=== PATIENT | female | born 1945 | race Hispanic/Latino ===

== ENCOUNTER 2016-12-02 09:52 | Emergency (ER) | payer MEDICARE, MEDICAID ==
[~2016-12-02] VITALS: Ht 157.5 cm; Wt 68.2 kg
[~2016-12-02 09:52] MED LIST: ALBU8.5H2 INHALATION; ASPI-973 PO; CITA20TA11 PO; GABA-502 PO; GEMF600T3 PO; GLIP10TA10 PO; LOSA50TA37 PO; METF850T2 PO; OMEP20TA86 PO; RANI300T4 PO
[2016-12-02 09:58] VITALS: BP 141/80; PULSE 103; RESP 22; O2SAT 98
--- NOTE | 2016-12-02 10:11 | ED.REPORT ---
HPI-General Illness Date of Service Dec 02, 2016 ED Provider: The patient is a 71 year old female with history of diabetes mellitus, anxiety, asthma, GERD, and hypertension, who was brought to the emergency department by EMS for chest pain. The patient states her family was coming up with a safety plan for her grandchildren if their parents were taken away. She felt threatened by her kbpzhuxy-kz-thc and began to work herself up. The patient states, "my jtlmlaop-ta-csj felt helpless and was putting it all on me." During this discussion she experienced chest pain, shortness of breath, and left arm tingling. She states, "I felt dizzy and as my [id number] got closer and closer, I fell. My grandson helped me up and got me water." She did not lose consciousness. These symptoms lasted for about 10 minutes. She has not had similar symptoms in the past. At this time the chest pain has improved and she only complains of a headache. She has had headaches for years and her symptoms are similar to previous episodes. Nursing Notes Stated Complaint: ANXIETY ATTACK Chief Complaint: General Complaint Nursing Notes Reviewed: Yes Allergies: Coded Allergies: lisinopril (Verified Adverse Reaction, Mild, COUGH, 07/28/16) Scheduled Albuterol HFA (Proair HFA) 8.5 Gm Hfa.aer.ad 2 PUFFS INHALATION Q4H Aspirin (Aspirin) 81 Mg Tablet 81 MG PO DAILY Citalopram (Citalopram) 20 Mg Tablet 20 MG PO DAILY Gabapentin (Gabapentin) 300 Mg Capsule 300 MG PO BID Gemfibrozil (Gemfibrozil) 600 Mg Tablet 600 MG PO BID Glipizide (Glipizide) 10 Mg Tablet 5 MG PO TIDAC Losartan Potassium (Losartan Potassium) 50 Mg Tablet 25 MG PO TID Metformin (Metformin) 850 Mg Tablet 850 MG PO TIDWM Omeprazole (Omeprazole) 20 Mg Tablet.dr 40 MG PO TID Ranitidine (Ranitidine) 300 Mg Tablet 300 MG PO DAILY General Time Seen by MD: 10:10 Chief Complaint Chest pain Hx Obtained From: Patient, [facility], EMS Arrived By: Ambulance Sudden in Onset?: Yes Onset Occurred: 1 - 4 hours ago Symptom Duration: Since onset Location: : Chest Quality: Painful Severity: Current: Mild Severity: Maximum: Moderate Recent Healthcare: No recent doctor visit, No recent hospitalization Similar Sx Previous: No Past Medical History Past Medical History DM, not insulin dependent. Anxiety Reports: Asthma, GERD, Hypertension Past Surgical History Right knee arthroscopy Left shoulder surgery Left eye surgery Reports: Cholecystectomy, Tonsillectomy Family History M: stroke, DM F: stroke, DM Reports: Diabetes mellitus, Stroke Smoking History Never Smoker Social History Alcohol Use: Denies alcohol use Drug Use: Denies drug use Other Social History: Local resident Occupation lives with son and his , 19,17 and 2.5 year old also Ambulatory Status Independent Review of Systems +panic attack Full Review of Systems Respiratory: Reports: Shortness of breath Cardiovascular: Reports: Chest pain Neurologic: Reports: Dizziness, Headache, Numbness (left hand tingling), Denies: Change LOC, Syncope Psychiatric: Reports: Anxiety, Stress Complete sys rev & neg: except as marked. Physical Exam Vital Signs Vital Signs Date Time Temp Pulse Resp B/P Pulse Ox O2 Delivery O2 Flow Rate FiO2 12/02/16 13:04 36.7 105 14 133/60 96 Room Air 12/02/16 10:53 106 18 141/77 96 Room Air 12/02/16 10:26 36.3 103 22 141/80 98 12/02/16 10:25 36.3 103 22 141/80 98 Room Air 12/02/16 09:58 36.3 103 22 141/80 98 Room Air Initial VS: Reviewed Head / Eyes: Atraumatic, Normocephalic, PERRL ENT: Mucous membranes moist, Conjunctiva normal, No scleral icterus Neck: Supple, Non-tender, Full range of motion Respiratory: Breath sounds normal, Clear to auscultation, No respiratory distress Cardiovascular: Regular rate & rhythm, Heart sounds normal, Intact distal pulses Abdomen / GI: Soft, Non-tender, No guarding, No rebound, No distention Extremities: Vascular intact, Neuro intact, No swelling, No tenderness Skin: Warm, Dry, No cyanosis Neurologic: Alert, Oriented, Nonfocal Psychiatric: Mood/affect normal, Behavior normal, Normal thought content General/Constitutional: Awake, Alert, No acute distress, Well appearing, Cooperative Behavior: Positive: Tearful Interpretation & Diagnostics Lab Results Interpretation Result Diagram: 12/02/16 1024 12/02/16 1024 Test 12/02/16 10:24 12/02/16 12:12 White Blood Count 7.1th/mm3 (3.8-10.1) Red Blood Count 3.62mil/mm3 (3.90-5.20) Hemoglobin 11.6g/dL (12.0-15.6) Hematocrit 34.2% (35.0-46.0) Mean Corpuscular Volume 94.5fL (81-100) Mean Corpuscular Hemoglobin 32.0pg (27.0-35.0) Mean Corpuscular Hemoglobin Concent 33.9% (32.0-37.0) Red Cell Distribution Width 11.9% (12.3-15.4) Platelet Count 255bil/L (150-400) Neutrophils (%) (Auto) 63.9% (40-74) Lymphocytes (%) (Auto) 21.8% (14-46) Monocytes (%) (Auto) 12.2% (4-12) Eosinophils (%) (Auto) 0.7% (0-5) Basophils (%) (Auto) 0.3% (0-3) Sodium Level 141mEq/L (134-144) Potassium Level 4.3mEq/L (3.5-5.2) Chloride Level 101mEq/L (97-108) Carbon Dioxide Level 22mmol/L (18-29) Blood Urea Nitrogen 14mg/dL (8-27) Creatinine 0.64mg/dL (0.57-1.00) Estimat Glomerular Filtration Rate 131mL/min (>59) Glucose Level 176mg/dL (60-99) Calcium Level 9.5mg/dL (8.5-10.1) Magnesium Level 1.5mg/dL (1.6-2.6) Total Bilirubin 0.3mg/dL (0.0-1.2) Aspartate Amino Transf (AST/SGOT) 56U/L (0-50) Alanine Aminotransferase (ALT/SGPT) 63U/L (0-32) Alkaline Phosphatase 101U/L (25-165) Total Protein 7.2g/dL (6.4-8.4) Albumin 4.4g/dL (3.4-5.0) Troponin T < 0.010ug/L (0.0-0.011) ECG Interpretation ECG Interpretation: Normal sinus rhythm No acute ischemia Time: 10:22 Interpreted by: ED physician X-Ray Chest Interpretation Chest Xray Interpretation: IMPRESSION: No acute cardiopulmonary disease. Dictated by: Osman Salcedo RRMadai Interpreted: Kacie Love MD on 12/02/2016 at 11:54 View: Portable, 1 view Interpretation / Wet Read by: Interpret - Radiologist Re-Eval/Medical Decision Med Decision/Clinical Course Chest pain related to emotional event. Serial troponins are negative EKG reassuring. These were performed for the off chance of stress-induced cardiomyopathy or other acute coronary syndrome. Overall the patient has been asymptomatic since arrival and serial labs are normal she will be discharged with strict return and follow-up precautions. Source of Hx: Old records, EMS, Family Time of Eval: 12:50 Re-Evaluation/Progress Note: Rechecked the patient. Discussed workup results, diagnosis, and plan for discharge. All questions were addressed. Counseled Regarding: Diagnosis, Lab results, Need for follow-up, When/why to return to ED Discharge & Departure Primary Impression: Chest pain Chest pain type: unspecified Qualified Code: R07.9 - Chest pain, unspecified Additional Impression: Stress reaction Disposition: Home Discharge Condition All VS Reviewed: Yes Condition: Stable Additional Instructions: Thank you for entrusting us with your care today. I am sorry you are dealing with all of this. Your workup today is reassuring. There is no evidence of a heart attack at this time. Followup with your regular doctor next week for recheck and probable stress test. Return to the emergency department for persistent chest pain, shortness of breath, or any other new or concerning symptoms. Referrals: Shani Shepherd MD (PCP) Scribe Attestation Portions of this note were transcribed by Lay Nixon. I, Dr. Carrizales personally performed the history, physical exam and medical decision-making; I reviewed and confirmed the accuracy of the information in the transcribed note. Signed by: Geovanny Hernandez, 12/02/2016 and 1300. copies to: Shani Shepherd MD, Timothy S DO Dec 02, 2016 10:11 Lay Nixon Dec 02, 2016 10:15
[2016-12-02 10:25] VITALS: BP 141/80; PULSE 103; RESP 22; O2SAT 98
[2016-12-02 10:26] VITALS: BP 141/80; PULSE 103; RESP 22; O2SAT 98
[2016-12-02 10:46] LABS: BASOPHILS % (AUTO) 0.3 % (0-3); EOSINOPHILS % (AUTO) 0.7 % (0-5); MONOCYTES % (AUTO) 12.2 % (4-12); Mean Corpuscular Volume 94.5 fL (81-100); NEUTROPHILS % (AUTO) 63.9 % (40-74); Platelet Count 255 bil/L (150-400)
[2016-12-02 10:53] VITALS: BP 141/77; PULSE 106; RESP 18; O2SAT 96
[2016-12-02 11:26] LABS: Magnesium 1.5 mg/dL (1.6-2.6)
[2016-12-02 11:33] LABS: TROPONIN T < 0.010 ug/L (0.0-0.011)
--- NOTE | 2016-12-02 11:55 | DRSVH ---
PROCEDURE: X-RAY CHEST ONE VIEW, PORTABLE ([id number]) INDICATIONS: CHEST PAIN TECHNIQUE: One view of the chest was acquired. COMPARISON: [facility], , CHEST 1VW (PORTABLE), 04/13/2012, 15:02. FINDINGS: Surgical changes and devices: None. Lungs and pleura: No pleural effusions or pneumothorax. Lungs are clear. Mediastinum: Mediastinal contours appear normal. Heart size is normal. Bones and chest wall: No suspicious bony lesions. Overlying soft tissues appear unremarkable. IMPRESSION: No acute cardiopulmonary disease. Dictated by: Osman Salcedo [facility] Interpreted: Kacie Love MD on 12/02/2016 at 11:54 Transcribed by: CHEKO on 12/02/2016 at 11:55 Approved by: Kacie Love MD, PhD on 12/02/2016 at 16:45
[2016-12-02 13:04] VITALS: BP 133/60; PULSE 105; RESP 14; O2SAT 96
== END 2016-12-02 13:06 | disposition home or self-care (01) ==
LOC: EDBD 09:52 → SED 09:52
DX: R07.9 Chest pain, unspecified (principal); F43.9 Reaction to severe stress, unspecified; R06.02 Shortness of breath; W18.30XA Fall on same level, unspecified, initial encounter; R20.2 Paresthesia of skin; R42 Dizziness and giddiness; R51 Headache; Y93.9 Activity, unspecified; Y92.9 Unspecified place or not applicable; Y99.8 Other external cause status; E11.9 Type 2 diabetes mellitus without complications; J45.909 Unspecified asthma, uncomplicated; K21.9 Gastro-esophageal reflux disease without esophagitis; I10 Essential (primary) hypertension; Z88.8 Allergy status to other drugs, medicaments and biological substances; Z79.82 Long term (current) use of aspirin; Z79.84 Long term (current) use of oral hypoglycemic drugs